=== PATIENT | male | born 1965 | race Caucasian/White ===

== ENCOUNTER → 2018-12-31 | Outpatient (CLI) | payer OTHER ==
--- NOTE | 2018-12-31 20:00 | RAD ---
Ribs right with PA chest History: Pain PA view of the chest and dedicated views of the left ribs were obtained. The heart and pulmonary vessels appear normal. The lungs and pleural margins are clear. There is acute mildly displaced fracture of the end of the right 10th rib. There may also be mild injury of the end of the eighth and ninth ribs as well. Impression: Acute traumatic fracture of the end of the right 10th rib. Possible minimally displaced fractures the ends of the right eighth and ninth ribs as well. Electronically signed by: Inocente Bah III, MD (12/31/2018 7:57 PM) [facility]
== END | disposition home or self-care (01) ==
LOC: PMG 15:58
PROVIDERS: ATTEND Registered Nurse
DX: S22.31XA Fracture of one rib, right side, initial encounter for closed fracture (principal); X58.XXXA Exposure to other specified factors, initial encounter; Y93.89 Activity, other specified; Y92.89 Other specified places as the place of occurrence of the external cause; Y99.8 Other external cause status
CPT/HCPCS: 71101

== ENCOUNTER → 2019-01-07 | Outpatient (CLI) | payer OTHER ==
--- NOTE | 2019-01-07 11:13 | RAD ---
EXAM: Abdomen sonogram. HISTORY: Pain. TECHNIQUE: Sonographic imaging of the abdomen was performed. COMPARISON: None. FINDINGS: The liver is normal in size. No focal hepatic lesion is seen. The liver parenchyma is slightly echogenic. The gallbladder is unremarkable. The common bile duct is normal in caliber. The right kidney and inferior vena cava are unremarkable. The pancreas is partially obscured due to bowel gas. IMPRESSION: 1. Slightly echogenic liver parenchyma. This can be seen with hepatic steatosis. 2. Partially obscured pancreas due to bowel gas. 2. Otherwise, unremarkable abdomen sonogram. Electronically signed by: Sara Mckeon MD (01/07/2019 11:10 AM) [id number]
== END | disposition home or self-care (01) ==
LOC: US 08:47
PROVIDERS: ATTEND Registered Nurse
DX: K76.0 Fatty (change of) liver, not elsewhere classified (principal)
CPT/HCPCS: 76705